=== PATIENT | male | born 1975 | race African-American/Black ===

== ENCOUNTER 2019-03-22 01:58 | Inpatient (IN) ==
[~2019-03-22 01:58] MED LIST: hydrALAZINE 20 MG/1 ML VIAL ONE
[2019-03-22] MEDS ORDERED: niCARdipine 25 MG/10 ML VIAL IV ONE (02:09)
[2019-03-22] MEDS ORDERED: niCARdipine INJ 25 MG in SODIUM CHLORIDE 0.9% 240 ML IV PRN (02:10)
[2019-03-22] MEDS ORDERED: VECURONIUM 10 MG VIAL IV ONE (02:22)
[2019-03-22] MEDS ORDERED: ETOMIDATE 20 MG/10 ML VIAL IV ONE (02:22)
[2019-03-22 02:57] LABS: Albumin 3.3 G/DL (3.4-5.0); Bilirubin,Total 0.4 MG/DL (0.2-1.0); Calcium 10.1 MG/DL (8.5-10.1); Osmolality,Calculated 319.3 MOS/KG (273-304); Total Protein 8.1 G/DL (6.4-8.3)
[2019-03-22 03:02] LABS: Basophils # 0.1 10*3/uL (0.0-0.2); Basophils % 0.3 % (0.0-0.8); Eosinophils # 0.2 10*3/uL (0.0-0.87); Eosinophils % 1.3 % (0.00-10.9); Hematocrit 39.1 VOL% (42.0-52.0); Hemoglobin 12.2 GM/DL (14.0-18.0); Immature Granulocytes % 1.6 %; Immature Granulocytes Absolute 0.24 #; Lymphocytes # 6.3 10*3/uL (1.4-4.0); Mean Corpuscular HGB Conc 31.2 GM/DL (32-36); Mean Corpuscular Volume 95.8 FL (87-102); Monocytes % 2.6 % (1.7-12.7); Neutrophils % 53.2 % (38.7-73.9); Platelet Count 139 T/CUMM (130-400); Red Blood Count 4.08 MC/CUMM (3.8-5.5); Red Cell Distribution Width 14.4 % (9.3-17.3); White Blood Count 15.3 T/CUMM (4-12)
[2019-03-22 03:18] LABS: ABG Base Excess -0.3 MMOL/L (-2.5-2.5); ABG HCO3 23.9 MMOL/L (20-26); ABG Oxygen Saturation 84.7 % (95-100); ABG PH 7.219 (7.35-7.45); ABG PO2 62.6 MM HG (80-95); ABG TCO2 27.2 MMOL/L (23-27); Allen Test Positive; Pt O2 Delivery Device Ventilator
[2019-03-22 03:25] LABS: ABG PCO2 73.7 MM HG (35-48)
[2019-03-22 03:48] LABS: PT Patient Result 10.7 SECS (9.6-12.2)
[2019-03-22 04:20] LABS: Anisocytosis 1+; Platelet Estimate Normal
[2019-03-22] MEDS ORDERED: hydrALAZINE 20 MG/1 ML VIAL IV STA (04:20)
[2019-03-22] MEDS ORDERED: ONDANSETRON 4 MG/2 ML VIAL IV PRN (04:21)
[2019-03-22] MEDS ORDERED: GLUCAGON 1 MG VIAL IM PRN (04:29)
[2019-03-22] MEDS ORDERED: DEXTROSE 10% 250 ML BAG IV PRN (04:29)
[2019-03-22] MEDS ORDERED: PROPOFOL 1,000 MG/100 ML BOTTLE IV ONE (05:01)
[2019-03-22] MEDS: PROPOFOL 1,000 MG/100 ML BOTTLE IV SCH ×4 (05:31→19:00)
[2019-03-22 05:44] LABS: ABG Base Excess 1.3 MMOL/L (-2.5-2.5); ABG HCO3 25.4 MMOL/L (20-26); ABG PCO2 58.7 MM HG (35-48); ABG PH 7.304 (7.35-7.45); ABG PO2 73.4 MM HG (80-95); Allen Test Positive; Pt O2 Delivery Device Ventilator
[2019-03-22] MEDS ORDERED: HEPARIN 5,000 UNIT/1 ML VIAL SUBCUT SCH (06:00)
[2019-03-22] MEDS ORDERED: POTASSIUM CHLORIDE 20 MEQ/15 ML UDCUP PER TUBE ONE (06:14)
[2019-03-22] MEDS ORDERED: PHENYLEPHRINE DRIP 40 MG/250 ML PREMIX IV ONE (06:42)
[2019-03-22] MEDS ORDERED: PHENYLEPHRINE DRIP 40 MG/250 ML PREMIX IV PRN (06:53)
[2019-03-22] MEDS: INSULIN LISPRO 100 UNIT/ML SUBCUT SCH ×3 (07:16→18:29)
[2019-03-22] MEDS: POTASSIUM CHLORIDE INJ 40 MEQ in SODIUM CHLORIDE 0.45% 1,000 ML IV SCH (07:18)
[2019-03-22] MEDS: PANTOPRAZOLE 40 MG VIAL IV SCH (08:32)
[2019-03-22] MEDS ORDERED: ALBUMIN 25% 25 GM in PREMIX 1 EACH IV ONE (09:40)
[2019-03-22] MEDS ORDERED: ALBUMIN 25% 12.5 GM in PREMIX 1 EACH IV ONE (09:45)
[2019-03-23] MEDS: INSULIN LISPRO 100 UNIT/ML SUBCUT SCH ×4 (00:33→18:15)
[2019-03-23] MEDS: PROPOFOL 1,000 MG/100 ML BOTTLE IV SCH ×5 (00:53→20:00)
[2019-03-23] MEDS: POTASSIUM CHLORIDE INJ 40 MEQ in SODIUM CHLORIDE 0.45% 1,000 ML IV SCH (01:33)
[2019-03-23 03:11] LABS: ABG Base Excess 4.1 MMOL/L (-2.5-2.5); ABG HCO3 28.2 MMOL/L (20-26); ABG PCO2 30.5 MM HG (35-48); ABG TCO2 22.8 MMOL/L (23-27); Allen Test Positive; Pt O2 Delivery Device Ventilator
[2019-03-23 05:26] LABS: Basophils % 0.2 % (0.0-0.8); Eosinophils # 0.1 10*3/uL (0.0-0.87); Eosinophils % 0.6 % (0.00-10.9); Hematocrit 36.4 VOL% (42.0-52.0); Hemoglobin 11.9 GM/DL (14.0-18.0); Immature Granulocytes % 0.5 %; Immature Granulocytes Absolute 0.06 #; Lymphocytes % 16.6 % (21.2-54.2); Mean Corpuscular HGB Conc 32.7 GM/DL (32-36); Mean Corpuscular Volume 91.5 FL (87-102); Monocytes % 4.3 % (1.7-12.7); Neutrophils % 77.8 % (38.7-73.9); Platelet Count 71 T/CUMM (130-400); Red Blood Count 3.98 MC/CUMM (3.8-5.5); Red Cell Distribution Width 14.9 % (9.3-17.3)
[2019-03-23 05:51] LABS: Albumin 2.6 G/DL (3.4-5.0); Bilirubin,Total 0.7 MG/DL (0.2-1.0); Calcium 8.2 MG/DL (8.5-10.1); Osmolality,Calculated 278.5 MOS/KG (273-304); Total Protein 6.7 G/DL (6.4-8.3)
[2019-03-23 06:35] LABS: Band Neutrophils 4 % (0-10); Hypochromasia Slight; Lymphocytes 24 % (20-55); Metamyelocytes 2 %; Microcytosis 1+; Ovalocytes Slight; Segmented Neutrophils 66 % (50-85); Total Cells Counted 100
[2019-03-23 06:36] LABS: Platelet Estimate Decreased
[2019-03-23] MEDS: PANTOPRAZOLE 40 MG VIAL IV SCH (09:16)
[2019-03-24] MEDS: PROPOFOL 1,000 MG/100 ML BOTTLE IV SCH ×6 (00:23→23:30)
[2019-03-24] MEDS: INSULIN LISPRO 100 UNIT/ML SUBCUT SCH ×4 (00:25→18:52)
[2019-03-24 05:14] LABS: ABG Base Excess 1.5 MMOL/L (-2.5-2.5); ABG HCO3 25.7 MMOL/L (20-26); ABG Oxygen Saturation 98.8 % (95-100); ABG PCO2 38.1 MM HG (35-48); ABG PH 7.434 (7.35-7.45); ABG TCO2 21.7 MMOL/L (23-27); Pt O2 Delivery Device Ventilator
[2019-03-24 06:09] LABS: Basophils % 0.2 % (0.0-0.8); Eosinophils # 0.3 10*3/uL (0.0-0.87); Eosinophils % 2.3 % (0.00-10.9); Hematocrit 31.1 VOL% (42.0-52.0); Hemoglobin 10.2 GM/DL (14.0-18.0); Immature Granulocytes % 2.1 %; Immature Granulocytes Absolute 0.24 #; Lymphocytes # 1.2 10*3/uL (1.4-4.0); Lymphocytes % 10.5 % (21.2-54.2); Mean Corpuscular HGB Conc 32.8 GM/DL (32-36); Mean Corpuscular Volume 90.9 FL (87-102); Neutrophils % 79.9 % (38.7-73.9); Platelet Count 107 T/CUMM (130-400); Red Blood Count 3.42 MC/CUMM (3.8-5.5); Red Cell Distribution Width 14.9 % (9.3-17.3); White Blood Count 11.2 T/CUMM (4-12)
[2019-03-24 06:32] LABS: Calcium 8.3 MG/DL (8.5-10.1); Osmolality,Calculated 288.1 MOS/KG (273-304)
[2019-03-24 07:10] LABS: Platelet Estimate Adequate
[2019-03-24 07:13] LABS: Anisocytosis 2+; Macrocytosis 1+; Polychromasia Slight
[2019-03-24] MEDS: PANTOPRAZOLE 40 MG VIAL IV SCH (09:00)
[2019-03-24] MEDS ORDERED: GLUCAGON 1 MG VIAL IM PRN (11:10)
[2019-03-24] MEDS ORDERED: DEXTROSE 10% 250 ML BAG IV PRN (11:10)
[2019-03-24] MEDS: ACETAMINOPHEN 325 MG/10.15 ML UDCUP PO PRN (22:25)
[2019-03-25 00:09] LABS: ABG Base Excess -3.2 MMOL/L (-2.5-2.5); ABG HCO3 19.9 MMOL/L (20-26); ABG Oxygen Saturation 99.6 % (95-100); ABG PCO2 29.8 MM HG (35-48); ABG PH 7.443 (7.35-7.45); ABG PO2 422.9 MM HG (80-95); ABG TCO2 20.8 MMOL/L (23-27); Allen Test Positive; Pt O2 Delivery Device Ventilator
[2019-03-25] MEDS: INSULIN LISPRO 100 UNIT/ML SUBCUT SCH ×4 (00:37→18:23)
[2019-03-25 00:43] LABS: Basophils % 0.3 % (0.0-0.8); Eosinophils % 0.3 % (0.00-10.9); Hematocrit 32.2 VOL% (42.0-52.0); Hemoglobin 10.8 GM/DL (14.0-18.0); Immature Granulocytes % 11.3 %; Immature Granulocytes Absolute 0.85 #; Lymphocytes # 0.6 10*3/uL (1.4-4.0); Mean Corpuscular HGB Conc 33.5 GM/DL (32-36); Mean Corpuscular Volume 90.7 FL (87-102); NRBC # 0.03 10*3/uL; Neutrophils % 76.1 % (38.7-73.9); Platelet Count 127 T/CUMM (130-400); Red Blood Count 3.55 MC/CUMM (3.8-5.5); Red Cell Distribution Width 15.1 % (9.3-17.3); White Blood Count 7.5 T/CUMM (4-12)
[2019-03-25 01:12] LABS: Band Neutrophils 1 % (0-10); Lymphocytes 9 % (20-55); Metamyelocytes 2 %; Segmented Neutrophils 85 % (50-85)
[2019-03-25 01:13] LABS: Platelet Estimate Normal; Polychromasia Few
[2019-03-25 01:14] LABS: Total Cells Counted 100
[2019-03-25] MEDS ORDERED: ACETAMINOPHEN 650 MG SUPP RECTAL ONE (01:52)
[2019-03-25] MEDS ORDERED: SODIUM CHLORIDE 0.9% 500 ML IV ONE (01:52)
[2019-03-25] MEDS: PIPERACILLIN/TAZOBACTAM 3,375 MG in SODIUM CHLORIDE 0.9% 100 ML IV SCH ×2 (03:00→14:56)
[2019-03-25 03:47] LABS: Basophils % 0.2 % (0.0-0.8); Eosinophils % 0.2 % (0.00-10.9); Hematocrit 31.6 VOL% (42.0-52.0); Hemoglobin 10.4 GM/DL (14.0-18.0); Immature Granulocytes % 1.4 %; Immature Granulocytes Absolute 0.13 #; Lymphocytes # 0.7 10*3/uL (1.4-4.0); Lymphocytes % 7.6 % (21.2-54.2); Mean Corpuscular HGB Conc 32.9 GM/DL (32-36); Mean Corpuscular Volume 89.8 FL (87-102); Mean Platelet Volume 14.4 FL (9.6-12.0); NRBC # 0.04 10*3/uL; Neutrophils % 86.6 % (38.7-73.9); Platelet Count 141 T/CUMM (130-400); Red Blood Count 3.52 MC/CUMM (3.8-5.5); Red Cell Distribution Width 15.3 % (9.3-17.3); White Blood Count 9.1 T/CUMM (4-12)
[2019-03-25 04:06] LABS: Calcium 8.4 MG/DL (8.5-10.1); Osmolality,Calculated 291.1 MOS/KG (273-304)
[2019-03-25 04:10] LABS: Prealbumin 18.7 MG/DL (20-40)
[2019-03-25 04:26] LABS: ABG Base Excess -0.3 MMOL/L (-2.5-2.5); ABG HCO3 24.2 MMOL/L (20-26); ABG Oxygen Saturation 99.1 % (95-100); ABG PCO2 38.5 MM HG (35-48); ABG PH 7.407 (7.35-7.45); ABG TCO2 21.7 MMOL/L (23-27); Allen Test Positive; Pt O2 Delivery Device Ventilator
[2019-03-25 05:57] LABS: Anisocytosis 2+; Band Neutrophils 5 % (0-10); Hypochromasia 1+; Lymphocytes 11 % (20-55); Macrocytosis 1+; Microcytosis 1+; Nucleated Red Blood Cells 34 (0-5); Platelet Estimate Decreased; Segmented Neutrophils 78 % (50-85); Total Cells Counted 100
[2019-03-25] MEDS ORDERED: VANCOMYCIN INJ 1,250 MG in SODIUM CHLORIDE 0.9% 250 ML IV ONE (06:00)
[2019-03-25] MEDS ORDERED: OSELTAMIVIR 6 MG/ML 60 ML/BOTTLE PO ONE (06:00)
[2019-03-25] MEDS: PROPOFOL 1,000 MG/100 ML BOTTLE IV SCH ×2 (06:05)
[2019-03-25] MEDS: PANTOPRAZOLE 40 MG VIAL IV SCH (09:06)
[2019-03-25] MEDS ORDERED: ACETAMINOPHEN 650 MG SUPP RECTAL PRN (20:26)
[2019-03-26] MEDS: INSULIN LISPRO 100 UNIT/ML SUBCUT SCH ×4 (00:44→18:30)
[2019-03-26] MEDS: PIPERACILLIN/TAZOBACTAM 3,375 MG in SODIUM CHLORIDE 0.9% 100 ML IV SCH ×2 (02:39→18:00)
[2019-03-26 04:13] LABS: ABG HCO3 21.8 MMOL/L (20-26); ABG Oxygen Saturation 91.2 % (95-100); ABG PCO2 36.8 MM HG (35-48); ABG PH 7.378 (7.35-7.45); ABG PO2 64.8 MM HG (80-95); ABG TCO2 19.6 MMOL/L (23-27); Allen Test Positive; Pt O2 Delivery Device Venturi Mask
[2019-03-26 05:44] LABS: Calcium 9.5 MG/DL (8.5-10.1)
[2019-03-26] MEDS: PANTOPRAZOLE 40 MG VIAL IV SCH (09:05)
[2019-03-26] MEDS ORDERED: VANCOMYCIN INJ 500 MG in SODIUM CHLORIDE 0.9% 100 ML IV PRN (12:00)
[2019-03-26] MEDS ORDERED: OSELTAMIVIR 6 MG/ML 60 ML/BOTTLE PO ONE (15:58)
[2019-03-26] MEDS: ACETAMINOPHEN 325 MG/10.15 ML UDCUP PO PRN (16:44)
[2019-03-26] MEDS ORDERED: VANCOMYCIN INJ 500 MG in SODIUM CHLORIDE 0.9% 100 ML IV ONE (17:00)
[2019-03-26] MEDS ORDERED: PHENOL 1.4% THROAT SPRAY 177 ML BOTTLE PO PRN (20:53)
[2019-03-27] MEDS: INSULIN LISPRO 100 UNIT/ML SUBCUT SCH ×5 (00:18→21:03)
[2019-03-27] MEDS: PIPERACILLIN/TAZOBACTAM 3,375 MG in SODIUM CHLORIDE 0.9% 100 ML IV SCH ×2 (01:47→14:35)
[2019-03-27 03:34] LABS: Allen Test Positive; Pt O2 Delivery Device Room Air
[2019-03-27 03:35] LABS: ABG Base Excess -3.8 MMOL/L (-2.5-2.5); ABG HCO3 21.3 MMOL/L (20-26); ABG PCO2 37.4 MM HG (35-48); ABG PH 7.361 (7.35-7.45); ABG PO2 89.8 MM HG (80-95)
[2019-03-27 05:05] LABS: Basophils % 0.4 % (0.0-0.8); Eosinophils # 0.2 10*3/uL (0.0-0.87); Eosinophils % 1.7 % (0.00-10.9); Hematocrit 33.6 VOL% (42.0-52.0); Hemoglobin 11.1 GM/DL (14.0-18.0); Immature Granulocytes % 4.7 %; Immature Granulocytes Absolute 0.45 #; Lymphocytes # 1.6 10*3/uL (1.4-4.0); Lymphocytes % 16.1 % (21.2-54.2); Mean Corpuscular Volume 89.1 FL (87-102); Mean Platelet Volume 12.6 FL (9.6-12.0); NRBC # 0.03 10*3/uL; Neutrophils % 63.1 % (38.7-73.9); Platelet Count 198 T/CUMM (130-400); Red Blood Count 3.77 MC/CUMM (3.8-5.5); Red Cell Distribution Width 15.4 % (9.3-17.3); White Blood Count 9.6 T/CUMM (4-12)
[2019-03-27 05:23] LABS: Osmolality,Calculated 285.1 MOS/KG (273-304)
[2019-03-27] MEDS: PANTOPRAZOLE 40 MG VIAL IV SCH (08:59)
[2019-03-28] MEDS: PIPERACILLIN/TAZOBACTAM 3,375 MG in SODIUM CHLORIDE 0.9% 100 ML IV SCH ×2 (02:12→15:24)
[2019-03-28 05:44] LABS: Osmolality,Calculated 299.7 MOS/KG (273-304)
[2019-03-28] MEDS: INSULIN LISPRO 100 UNIT/ML SUBCUT SCH ×4 (08:51→22:01)
[2019-03-28] MEDS: PANTOPRAZOLE 40 MG TABLET PO SCH (08:52)
[2019-03-29] MEDS: hydrALAZINE 20 MG/1 ML VIAL IV PRN ×2 (01:12→23:45)
[2019-03-29] MEDS: PIPERACILLIN/TAZOBACTAM 3,375 MG in SODIUM CHLORIDE 0.9% 100 ML IV SCH ×2 (01:13→14:50)
[2019-03-29 05:34] LABS: Basophils % 0.4 % (0.0-0.8); Eosinophils # 0.4 10*3/uL (0.0-0.87); Eosinophils % 4.9 % (0.00-10.9); Hematocrit 30.2 VOL% (42.0-52.0); Hemoglobin 10.3 GM/DL (14.0-18.0); Immature Granulocytes % 0.9 %; Immature Granulocytes Absolute 0.07 #; Lymphocytes # 1.4 10*3/uL (1.4-4.0); Lymphocytes % 18.8 % (21.2-54.2); Mean Corpuscular HGB Conc 34.1 GM/DL (32-36); Mean Corpuscular Volume 87.8 FL (87-102); Mean Platelet Volume 11.9 FL (9.6-12.0); NRBC # 0.02 10*3/uL; Platelet Count 288 T/CUMM (130-400); Red Blood Count 3.44 MC/CUMM (3.8-5.5); White Blood Count 7.4 T/CUMM (4-12)
[2019-03-29 06:05] LABS: Calcium 9.4 MG/DL (8.5-10.1); Osmolality,Calculated 311.2 MOS/KG (273-304)
[2019-03-29] MEDS: INSULIN LISPRO 100 UNIT/ML SUBCUT SCH ×4 (08:46→22:03)
[2019-03-29] MEDS: PANTOPRAZOLE 40 MG TABLET PO SCH (12:35)
[2019-03-29] MEDS ORDERED: TUBERCULIN SKIN TEST 0.1 ML SYRINGE INTRADERM ONE (15:01)
[2019-03-30] MEDS: PIPERACILLIN/TAZOBACTAM 3,375 MG in SODIUM CHLORIDE 0.9% 100 ML IV SCH ×2 (03:28→13:44)
[2019-03-30] MEDS: INSULIN LISPRO 100 UNIT/ML SUBCUT SCH ×5 (09:11→17:54)
[2019-03-30] MEDS: PANTOPRAZOLE 40 MG TABLET PO SCH (09:12)
[2019-03-30] MEDS ORDERED: BENZOCAINE/MENTHOL LOZENGE 18/BOX PO PRN (11:38)
[2019-03-30] MEDS ORDERED: INSULIN GLARGINE 100 UNIT/ML SUBCUT ONE (12:55)
[2019-03-30] MEDS ORDERED: INSULIN LISPRO 100 UNIT/ML SUBCUT ONE (15:10)
[2019-03-30 16:17] VITALS: BP 137/83
== END 2019-03-30 18:32 | DRG 208 ==
LOC: N.ED 01:58 → N.EDINP 04:21 → SUATTDRO 04:21 → N.CC 04:44 → N.5E 03-27 11:50
PROVIDERS: ADMIT Internal Medicine; ATTEND Internal Medicine

== ENCOUNTER 2020-07-02 08:49 | Inpatient (IN) ==
[2020-07-02] MEDS ORDERED: SODIUM CHLORIDE 0.9% 1,000 ML IV STA (09:36)
[2020-07-02 09:50] LABS: Basophils % 0.2 % (0.0-0.8); Eosinophils # 0.2 10*3/uL (0.0-0.87); Eosinophils % 1.5 % (0.00-10.9); Hemoglobin 9.5 GM/DL (14.0-18.0); Immature Granulocytes % 1.5 %; Immature Granulocytes Absolute 0.19 #; Lymphocytes # 0.8 10*3/uL (1.4-4.0); Lymphocytes % 5.8 % (21.2-54.2); Mean Corpuscular HGB Conc 32.8 GM/DL (32-36); Mean Corpuscular Volume 92.9 FL (87-102); Mean Platelet Volume 12.9 FL (9.6-12.0); Monocytes % 7.1 % (1.7-12.7); NRBC # 2.08 10*3/uL; Neutrophils % 83.9 % (38.7-73.9); Platelet Count 127 T/CUMM (130-400); Red Blood Count 3.12 MC/CUMM (3.8-5.5); Red Cell Distribution Width 19.3 % (9.3-17.3)
[2020-07-02 09:57] LABS: Alanine Aminotransferase 147 U/L (16-61); Albumin 1.8 G/DL (3.4-5.0); Alkaline Phosphatase 810 U/L (45-117); Aspartate Amino Transferase 687 U/L (0-37); Blood Urea Nitrogen 93 MG/DL (7-18); Calcium 7.9 MG/DL (8.5-10.1); Carbon Dioxide 24 MMOL/L (21-32); Estimated Glom Filtration Rate 7 ML/MIN; Glucose 241 MG/DL (74-106); Osmolality,Calculated 311.7 MOS/KG (273-304); Potassium 4.9 MMOL/L (3.5-5.1); Sodium 138 MMOL/L (136-145); Total Protein 6.5 G/DL (5.0-7.5)
[2020-07-02 10:12] LABS: Hypochromasia 1+; Lymphocytes 5 % (20-55); Nucleated Red Blood Cells 23 (0-5); Segmented Neutrophils 86 % (50-85); Total Cells Counted 100
[2020-07-02] MEDS ORDERED: ONDANSETRON 4 MG/2 ML VIAL ONE (10:32)
[2020-07-02] MEDS ORDERED: MORPHINE 4 MG/1 ML VIAL ONE (10:33)
[2020-07-02] MEDS ORDERED: MORPHINE 4 MG/1 ML VIAL IV STA (10:35)
[2020-07-02] MEDS ORDERED: ONDANSETRON 4 MG/2 ML VIAL IV STA (10:36)
[2020-07-02] MEDS ORDERED: PIPERACILLIN/TAZOBACTAM 3,375 MG in SODIUM CHLORIDE 0.9% 100 ML IV STA (11:42)
[2020-07-02] MEDS ORDERED: MORPHINE 4 MG/1 ML VIAL IV PRN (11:57)
[2020-07-02] MEDS ORDERED: ONDANSETRON 4 MG/2 ML VIAL IV PRN (11:57)
[2020-07-02] MEDS ORDERED: GLUCAGON 1 MG VIAL IM PRN (11:57)
[2020-07-02] MEDS ORDERED: DEXTROSE 50% 25 GM/50 ML VIAL IV PRN (11:57)
[2020-07-02] MEDS ORDERED: HEPARIN 5,000 UNIT/1 ML VIAL SUBCUT SCH (12:30)
[2020-07-02] MEDS ORDERED: DOCUSATE SODIUM 100 MG CAPSULE PO PRN (12:59)
[2020-07-02] MEDS ORDERED: ACETAMINOPHEN 325 MG TABLET PO PRN (12:59)
[2020-07-02] MEDS: SODIUM CHLORIDE 0.9% 1,000 ML IV SCH (14:10)
[2020-07-02] MEDS: INSULIN REGULAR 100 UNIT/ML SUBCUT SCH ×2 (17:30→21:00)
[2020-07-02] MEDS ORDERED: AMOXICILLIN 500 MG CAPSULE PO SCH (21:00)
[2020-07-02] MEDS ORDERED: PANTOPRAZOLE 40 MG TABLET PO SCH (21:00)
[2020-07-02] MEDS: PIPERACILLIN/TAZOBACTAM 3,375 MG in SODIUM CHLORIDE 0.9% 100 ML IV SCH (23:24)
[2020-07-03 03:53] LABS: Basophils % 0.2 % (0.0-0.8); Eosinophils # 0.1 10*3/uL (0.0-0.87); Eosinophils % 0.6 % (0.00-10.9); Hematocrit 27.5 VOL% (42.0-52.0); Immature Granulocytes % 1.5 %; Immature Granulocytes Absolute 0.23 #; Lymphocytes # 0.4 10*3/uL (1.4-4.0); Lymphocytes % 2.6 % (21.2-54.2); Mean Corpuscular HGB Conc 32.7 GM/DL (32-36); Mean Corpuscular Volume 94.8 FL (87-102); Monocytes % 6.9 % (1.7-12.7); NRBC # 5.67 10*3/uL; Neutrophils % 88.2 % (38.7-73.9); Red Cell Distribution Width 20.3 % (9.3-17.3); White Blood Count 15.2 T/CUMM (4-12)
[2020-07-03 04:08] LABS: Calcium 7.6 MG/DL (8.5-10.1); Osmolality,Calculated 318.1 MOS/KG (273-304); Potassium 4.8 MMOL/L (3.5-5.1)
[2020-07-03 04:17] LABS: Platelet Count 72 T/CUMM (130-400)
[2020-07-03 04:18] LABS: Uric Acid 12.7 MG/DL (3.5-7.2)
[2020-07-03 04:19] LABS: Band Neutrophils 5 % (0-10); HDL Cholesterol < 10 MG/DL (40-60); Hypochromasia 1+; Lymphocytes 4 % (20-55); Nucleated Red Blood Cells 31 (0-5); Platelet Estimate Decreased; Segmented Neutrophils 85 % (50-85); Total Cells Counted 100; Triglycerides 374 MG/DL (2-150); VLDL CHOLESTEROL 74.8 MG/DL
[2020-07-03 04:20] LABS: Howell-Jolly Bodies Slight
[2020-07-03] MEDS ORDERED: VECURONIUM 10 MG VIAL IV ONE ×2 (05:32→05:52)
[2020-07-03] MEDS ORDERED: ETOMIDATE 20 MG/10 ML VIAL IV ONE ×2 (05:32→05:50)
[2020-07-03] MEDS ORDERED: NOREPINEPHRINE 4 MG/4 ML VIAL IV ONE (05:37)
[2020-07-03] MEDS ORDERED: SODIUM CHLORIDE 0.9% 500 ML IV ONE (05:38)
[2020-07-03] MEDS ORDERED: SODIUM BICARBONATE 50 MEQ/50 ML VIAL IV ONE ×2 (05:39→05:41)
[2020-07-03] MEDS: NOREPINEPHRINE 8 MG in SODIUM CHLORIDE 0.9% 242 ML IV PRN ×5 (05:41→21:51)
[2020-07-03] MEDS ORDERED: MIDAZOLAM 100 MG in SODIUM CHLORIDE 0.9% 80 ML IV PRN (06:29)
[2020-07-03 07:52] LABS: ABG Base Excess -5.6 MMOL/L (-2.5-2.5); ABG HCO3 19.8 MMOL/L (20-26); ABG PCO2 33.9 MM HG (35-48); ABG PH 7.359 (7.35-7.45); ABG TCO2 17.5 MMOL/L (23-27); Allen Test Positive; Pt O2 Delivery Device Ventilator
[2020-07-03 07:57] LABS: Albumin 1.6 G/DL (3.4-5.0); Bilirubin,Direct 6.68 MG/DL (0.0-0.20); Bilirubin,Indirect 2.1 MG/DL (0.0-1.0); Bilirubin,Total 8.8 MG/DL (0.2-1.0); Total Protein 6.2 G/DL (6.4-8.2)
[2020-07-03] MEDS: INSULIN REGULAR 100 UNIT/ML SUBCUT SCH ×4 (08:53→23:45)
[2020-07-03] MEDS: PANTOPRAZOLE 40 MG VIAL IV SCH ×2 (08:53→20:30)
[2020-07-03] MEDS: SODIUM CHLORIDE 0.9% 1,000 ML IV SCH ×2 (08:55→20:30)
[2020-07-03] MEDS ORDERED: PANTOPRAZOLE 40 MG TABLET PO SCH (09:00)
[2020-07-03] MEDS: PIPERACILLIN/TAZOBACTAM 3,375 MG in SODIUM CHLORIDE 0.9% 100 ML IV SCH (12:58)
[2020-07-03] MEDS: ALBUTEROL/IPRATROPIUM 3 ML NEB RESP TX SCH ×2 (14:00→20:25)
[2020-07-03 21:15] VITALS: BP 124/70
[2020-07-04] MEDS: ALBUTEROL/IPRATROPIUM 3 ML NEB RESP TX SCH ×4 (00:09→20:22)
[2020-07-04] MEDS: PIPERACILLIN/TAZOBACTAM 3,375 MG in SODIUM CHLORIDE 0.9% 100 ML IV SCH ×2 (00:14→14:00)
[2020-07-04] MEDS: NOREPINEPHRINE 8 MG in SODIUM CHLORIDE 0.9% 242 ML IV PRN ×5 (02:44→20:40)
[2020-07-04] MEDS: SODIUM CHLORIDE 0.9% 1,000 ML IV SCH ×2 (04:28→17:08)
[2020-07-04 04:54] LABS: Basophils # 0.1 10*3/uL (0.0-0.2); Basophils % 0.2 % (0.0-0.8); Eosinophils # 0.4 10*3/uL (0.0-0.87); Hematocrit 31.6 VOL% (42.0-52.0); Hemoglobin 9.9 GM/DL (14.0-18.0); Immature Granulocytes % 1.2 %; Immature Granulocytes Absolute 0.27 #; Lymphocytes % 4.5 % (21.2-54.2); Mean Corpuscular HGB Conc 31.3 GM/DL (32-36); Mean Corpuscular Volume 97.2 FL (87-102); Monocytes % 6.4 % (1.7-12.7); NRBC # 7.41 10*3/uL; Neutrophils % 85.7 % (38.7-73.9); Platelet Count 92 T/CUMM (130-400); Red Blood Count 3.25 MC/CUMM (3.8-5.5); White Blood Count 22.3 T/CUMM (4-12)
[2020-07-04 05:15] LABS: Eosinophils 1 % (0-10); Hypochromasia Slight; Lymphocytes 11 % (20-55); Macrocytosis Slight; Nucleated Red Blood Cells 38 (0-5); Platelet Estimate Decreased; Polychromasia Slight; Segmented Neutrophils 83 % (50-85); Total Cells Counted 100
[2020-07-04 05:26] LABS: Albumin 1.4 G/DL (3.4-5.0); Bilirubin,Total 8.8 MG/DL (0.2-1.0); Osmolality,Calculated 302.7 MOS/KG (273-304); Potassium 5.3 MMOL/L (3.5-5.1); Total Protein 5.7 G/DL (6.4-8.2)
[2020-07-04] MEDS: INSULIN REGULAR 100 UNIT/ML SUBCUT SCH ×3 (05:56→18:41)
[2020-07-04] MEDS: PANTOPRAZOLE 40 MG VIAL IV SCH ×2 (08:41→21:50)
[2020-07-04] MEDS ORDERED: LEVOFLOXACIN INJ 500 MG in PREMIX 1 EACH IV SCH (13:00)
[2020-07-04] MEDS: metroNIDAZOLE INJ 500 MG in PREMIX 1 EACH IV SCH ×2 (14:42→21:52)
[2020-07-04] MEDS ORDERED: LACTATED RINGERS 1,000 ML IV ONE (15:50)
[2020-07-04] MEDS: APIXABAN 2.5 MG TABLET PO SCH (21:52)
[2020-07-05] MEDS: ALBUTEROL/IPRATROPIUM 3 ML NEB RESP TX SCH ×3 (00:20→13:22)
[2020-07-05] MEDS: NOREPINEPHRINE 8 MG in SODIUM CHLORIDE 0.9% 242 ML IV PRN ×4 (00:20→12:37)
[2020-07-05] MEDS: INSULIN REGULAR 100 UNIT/ML SUBCUT SCH ×3 (00:57→12:37)
[2020-07-05 03:39] LABS: ABG Base Excess -11.4 MMOL/L (-2.5-2.5); ABG HCO3 15.4 MMOL/L (20-26); ABG Oxygen Saturation 99.8 % (95-100); ABG PCO2 27.2 MM HG (35-48); ABG PH 7.311 (7.35-7.45); ABG TCO2 12.8 MMOL/L (23-27); Allen Test Positive; Pt O2 Delivery Device Ventilator
[2020-07-05] MEDS: SODIUM CHLORIDE 0.9% 1,000 ML IV SCH (03:40)
[2020-07-05 04:10] LABS: Basophils # 0.1 10*3/uL (0.0-0.2); Basophils % 0.2 % (0.0-0.8); Eosinophils # 0.2 10*3/uL (0.0-0.87); Hematocrit 28.2 VOL% (42.0-52.0); Hemoglobin 8.5 GM/DL (14.0-18.0); Immature Granulocytes % 3.4 %; Immature Granulocytes Absolute 0.73 #; Lymphocytes # 1.2 10*3/uL (1.4-4.0); Lymphocytes % 5.8 % (21.2-54.2); Mean Corpuscular HGB Conc 30.1 GM/DL (32-36); Mean Corpuscular Volume 104.1 FL (87-102); Mean Platelet Volume 13.1 FL (9.6-12.0); Monocytes % 7.8 % (1.7-12.7); NRBC # 7.85 10*3/uL; Neutrophils % 81.8 % (38.7-73.9); Platelet Count 71 T/CUMM (130-400); Red Blood Count 2.71 MC/CUMM (3.8-5.5); White Blood Count 21.4 T/CUMM (4-12)
[2020-07-05 04:28] LABS: Band Neutrophils 1 % (0-10); Hypochromasia 1+; Lymphocytes 7 % (20-55); Macrocytosis Slight; Nucleated Red Blood Cells 44 (0-5); Platelet Estimate Decreased; Polychromasia Slight; Segmented Neutrophils 83 % (50-85); Total Cells Counted 100
[2020-07-05 04:29] LABS: Howell-Jolly Bodies Slight
[2020-07-05 04:38] LABS: Albumin 1.3 G/DL (3.4-5.0); Bilirubin,Total 8.8 MG/DL (0.2-1.0); Calcium 7.7 MG/DL (8.5-10.1); Osmolality,Calculated 308.5 MOS/KG (273-304)
[2020-07-05 04:40] LABS: Potassium 7.1 MMOL/L (3.5-5.1)
[2020-07-05] MEDS ORDERED: SODIUM BICARBONATE 50 MEQ/50 ML VIAL IV ONE (04:45)
[2020-07-05] MEDS: metroNIDAZOLE INJ 500 MG in PREMIX 1 EACH IV SCH ×2 (05:03→14:01)
[2020-07-05] MEDS: INSULIN REGULAR 10 UNIT, CALCIUM GLUCONATE 1,000 MG in DEXTROSE 10% 250 ML IV ONE ×2 (05:04→07:13)
[2020-07-05] MEDS ORDERED: CALCIUM GLUCONATE 1,000 MG in SODIUM CHLORIDE 0.9% 100 ML IV ONE ×2 (05:19→05:30)
[2020-07-05] MEDS ORDERED: DEXTROSE 50% 25 GM/50 ML VIAL IV ONE (05:19)
[2020-07-05] MEDS ORDERED: INSULIN REGULAR 100 UNIT/ML IV ONE (05:19)
[2020-07-05] MEDS ORDERED: CALCIUM GLUCONATE 1,000 MG/10 ML VIAL IV ONE (05:26)
[2020-07-05] MEDS ORDERED: SODIUM CHLORIDE 0.9% 1,000 ML IV ONE (08:22)
[2020-07-05] MEDS: APIXABAN 2.5 MG TABLET PO SCH (09:00)
[2020-07-05] MEDS: PANTOPRAZOLE 40 MG VIAL IV SCH (09:00)
[2020-07-05] MEDS ORDERED: NOREPINEPHRINE 4 MG/4 ML VIAL IV ONE (11:15)
== END 2020-07-05 13:50 | disposition expired | DRG 208 ==
LOC: EDUNIT# → EDBD → N.EDINP 08:49 → N.ED 08:49 → SUATTDRO 11:55 → N.4E 12:56 → N.CC 07-03 05:23
PROVIDERS: ADMIT Hospitalist; ATTEND Family Medicine